=== PATIENT | female | born 1960 | race Two or more races ===

== ENCOUNTER 2023-02-16 14:16 | Emergency (ER) | payer MEDICARE, SELFPAY ==
--- NOTE | ~2023-02-16 | CT_ITS ---
EXAMINATION: CT ABDOMEN AND PELVIS WITH CONTRAST CLINICAL INFORMATION: Severe lower abdominal pain COMPARISON: None available. TECHNIQUE: Multidetector volumetric images were obtained from the superior aspect of the liver through the pubic symphysis following administration 85 mL of Omnipaque 350 intravenous contrast. Sagittal and coronal reformatted images were obtained on the technologist's workstation. Oral contrast: No This CT examination was performed using dose optimization techniques as appropriate, variously including the following: *Automated exposure control *Adjustment of mA and/or kV according to patient size (this includes techniques or standardized protocols for targeted exams where dose is matched to indication/reason for exam; i.e. extremities or head) *Use of iterative reconstruction technique DLP: 865 mGy-cm FINDINGS: LUNG BASES: Coronary artery calcification is present. ABDOMINAL AND PELVIC WALL: Tiny fat-containing umbilical hernia. LIVER AND BILIARY TREE: Hypoattenuating hepatic parenchyma compatible with hepatic steatosis. Liver is enlarged measuring 20.3 cm in span. GALLBLADDER: Cholelithiasis without evidence of acute cholecystitis. PANCREAS: Unremarkable. SPLEEN: Unremarkable. ADRENAL GLANDS: 2 homogeneous indeterminate left adrenal nodules measuring 1.6 cm and 1.3 cm, 25.4 and 61 Hounsfield units respectively. KIDNEYS AND URETERS: Moderate right hydroureteronephrosis with a delayed nephrogram and asymmetric perinephric fat stranding with a 7 mm obstructing stone in the ureterovesicular junction and a punctate additional stone in the distal ureter. A punctate nonobstructing right upper pole renal stone. GASTROINTESTINAL TRACT: Colonic diverticulosis without evidence of diverticulitis. Normal appendix. VASCULAR: Unremarkable. LYMPH NODES/PERITONEUM: Few prominent piyush hepatic nodes not pathologically enlarged measuring up to 1 cm short axis may be reactive given the background of underlying liver disease. Few subcentimeter short axis retroperitoneal nodes not pathologically enlarged. FREE FLUID: None. BLADDER: Unremarkable. PELVIC VISCERA: Myomatous uterus. OSSEOUS STRUCTURES: Unremarkable. CT/CT abdomen pelvis w IV con IMPRESSION: 1. Moderate right hydroureteronephrosis with a delayed nephrogram and asymmetric perinephric fat stranding with a 7 mm obstructing stone in the ureterovesicular junction and a punctate additional stone in the distal ureter. A punctate nonobstructing right upper pole renal stone is also present. 2. Two indeterminate left adrenal nodules measuring 1.6 cm and 1.3 cm. Assuming no history of primary malignancy findings are probable to reflect an adrenal adenoma. Recommend one-year follow-up adrenal washout CT, and if stable greater than or equal to 1 year no further imaging follow-up recommended. 3. Hepatomegaly and hepatic steatosis. 4. Cholelithiasis without evidence of acute cholecystitis. 5. Borderline enlarged piyush hepatic nodes, may be reactive given background of underlying liver disease. 6. Coronary artery calcification.
--- NOTE | 2023-02-16 15:22 | ED.ABDPAIN ---
HPI - Abdominal Pain General Chief Complaint: Abdominal Pain Stated Complaint: abd pain Time Seen by Provider: 02/16/23 15:36 Source: patient Mode of arrival: ambulatory Limitations: no limitations History of Present Illness HPI narrative: 62-year-old female with history of DM and obesity presents to the ER for evaluation of slowly worsening, now severe, lower abdominal pain that started about 9am and has gotten progressively worse. She states the pain comes in waves like contractions. It is located actross her entire lower abdomen and suprapubic area. She denies nausea, vomiting or diarrhea. She had a normal BM this morning. She reports sensation to urinate but is only urinating small amounts. No pain with urination and no blood in her urine. No fever or chills. No history of similar pains and no history of UTI. MD elicited complaint: abdominal pain Pertinent past history: none Onset (ago): hour(s) Pain Consistency: constant Location: RLQ, LLQ and suprapubic Severity: severe Pain scale (0-10): 10 Quality: stabbing Radiation: none Exacerbating factors: nothing Relieving factors: nothing Associated symptoms: other (difficulty urinating) Related Data Previous Rx's Medication Instructions Recorded hydromorphone 2 mg tablet 2 mg PO Q4-6H PRN pain #6 tabs 02/16/23 (Dilaudid) naproxen 375 mg tablet,delayed 375 mg PO BID PRN pain #30 tabs 02/16/23 release ondansetron 4 mg disintegrating 4 mg PO Q8-12H PRN nausea and 02/16/23 tablet vomiting #10 tabs prednisone 20 mg tablet 20 mg PO DAILY 3 days #3 tabs 02/16/23 tamsulosin 0.4 mg capsule (Flomax) 0.4 mg PO DAILY 2 weeks #14 caps 02/16/23 Allergies Allergy/AdvReac Type Severity Reaction Status Date / Time Penicillins [PENICILLINS] Allergy Mild UNKOWN Verified 02/16/23 15:22 Review of Systems Review of Systems Yes all other systems are reviewed and are negative [facility] Social History Social History Alcohol intake: never Smoked in Last 30 Days: No Use of substances other than those prescribed or required for medical reasons: No Advance Directives: No Advance Directives Information Provided: No Physical Exam ED Vital Signs: Vital Signs - 24 hr 02/16/23 15:23 02/16/23 18:29 02/16/23 19:23 Temperature 98.5 F 98.1 F 97.9 F Pulse Rate 135 H 68 60 Respiratory Rate 18 18 17 Blood Pressure 192/118 H 175/93 H 193/93 H Pulse Oximetry 99 98 99 Oxygen Delivery Method Room Air Room Air Room Air BMI result Body Mass Index 38.2 Appearance: Alert. Oriented X3. No acute distress. Head: normocephalic, atraumatic. Eyes: Pupils equal, round and reactive to light. ENT: Pharynx normal. No tonsillar swelling or exudate. Neck: Normal inspection. Neck supple. CVS: Normal heart rate and rhythm. Pulses normal. Respiratory: No respiratory distress. Breath sounds normal. Abdomen: Obese, Soft with mild diffuse tenderness of the lower abdomen and suprapubic area, no point tenderness, no rebound or guarding, normal active +BS x4 Skin: Skin warm and dry. Normal skin color. Normal skin turgor. No rashes. Extremities: No lower extremity edema. No joint swelling. Neuro/psych: Oriented X 3. No motor deficit. No sensory deficit. CN II-XII intact. Normal speech and cognition. Course Course Course Narrative: Patient complains of onset of low abdominal pain 5 hours ago which started mildly and has increased in severity and is now constant , no vomiting no dysuria no diarrhea, no fever no chest pain She is noted to have a pulse of 136, afebrile, blood pressure is 192/[address] scan ordered This is rapid medical exam in triage pending full evaluation, history and physical and review of labs and imaging by provider in the ER Reevaluation(s) Reevaluation #1: signed out to mike paige pa-c who will assume care Time: 16:38 Reevaluation #2: I was given sign out pending CT scan. CT scan revealing moderate right hydroureter nephrosis with delayed nephrogram and asymmetric perinephric fat stranding with 7 mm obstructing stone in the UVJ and punctate additional stone in the distal ureter. Time: 18:17 Reevaluation #3: Patient centered conversation discussed with patient and son, patient wishes to pass kidney stone at home if possible. I discussed this case with urologist, Dr. Juarez, who recommends admission but also agrees that if patient wishes to pass kidney stone at home we can send with medications to help facilitate this. Encouraged plenty of hydration. Dr. Bonilla recommends patient to be discharged on Zofran, Flomax, prednisone, naproxen, Dilaudid as needed and to follow up with Dr. Juarez. Patient remained comfortable, in no pain. Patient understands and agrees with plan. Given return precautions. Patient stable for discharge. Time: 19:46 Medical Decision Making Medical Decision Making [facility] Narrative: 62-year-old female with history of diabetes and obesity presents to the ER for evaluation slowly worsening lower abdominal pain that started this morning. No associated nausea, vomiting, diarrhea but she reports new difficulty urinating. She states the pain is a 10/10. She is tachycardic to 135 on arrival. She denies any palpitations. She is afebrile. Lab workup and CT scan have been ordered along with IV fluids and pain medication. Will reassess Differential Diagnosis Differential Diagnoses: The differential diagnosis associated with the presentation includes Acute diverticulitis, acute UTI, pyelonephritis, acute appendicitis Admission/Observation Consideration of admission/observation: Escalation of care including admission/observation considered Consult Healthcare Provider Management of the patient was discussed with: Risk Management Consultant Dr. Juarez Lab Data [facility] Lab Attestation statement: I reviewed the patient's lab results. 02/16/23 15:49 02/16/23 15:49 Labs: Lab Results 02/16/23 02/16/23 Range/Units 15:49 17:14 WBC 10.5 (4.8-10.8) X10*3/uL RBC 4.76 (4.20-5.50) X10*6/uL Hgb 13.1 (12.0-16.0) g/dl Hct 39.3 (37.0-47.0) % MCV 82.6 (80.0-98.0) fL MCH 27.5 (27.0-33.0) pg MCHC 33.3 (31.0-35.0) g/dl RDW 13.2 (11.0-16.0) % Plt Count 267 (160-400) X10*3/uL MPV 10.1 (9.4-12.3) fL Immature Gran % (Auto) 0.4 (0.0-0.4) % Neut % (Auto) 82.1 H (45-73) % Lymph % (Auto) 12.4 L (20-40) % [place] % (Auto) 4.5 (2-11) % Eos % (Auto) 0.4 (0-4) % Baso % (Auto) 0.2 (0-2) % Lymph # (Auto) 1.3 (1.2-4.9) X10*3/uL Mellette # (Auto) 0.5 (0.1-1.2) X10*3/uL Eos # (Auto) 0.0 (0.0-0.4) X10*3/uL Baso # (Auto) 0.0 (0.0-0.2) X10*3/uL Abs Immat Gran (auto) 0.04 H (0.00-0.03) X10*3/uL Absolute Neuts (auto) 8.7 H (2.0-8.3) x10*3/uL Absolute Nucleated RBC 0.000 (0.0-0.012) X10*3/uL Nucleated RBC % (auto) 0.0 (0.0-0.2) /100WBC Sodium 134 L (135-145) mmol/L Potassium 4.6 (3.3-5.1) mmol/L Chloride 105 (96-108) mmol/L Carbon Dioxide 19 L (22-29) mmol/L Anion Gap 15 (12-20) BUN 14 (9-16) mg/dL Creatinine 0.95 (0.5-1.4) mg/dL Estim Creat Clear Calc 61.6 Estimated GFR 59 Random Glucose 230 H (60-115) mg/dL Lactic Acid 2.0 (0.5-2.0) mmol/L Calcium 9.8 (8.4-10.2) mg/dL Total Bilirubin 0.5 (0.0-1.0) mg/dL Direct Bilirubin 0.1 (0.0-0.5) mg/dL AST 40 H (5-31) U/L ALT 32 H (0-31) U/L Alkaline Phosphatase 112 (39-117) U/L Total Protein 7.4 (6.5-8.0) g/dL Albumin 4.1 (3.5-5.0) g/dL Lipase 25 (8-78) U/L Urine Color Yellow Urine Appearance Clear Urine pH 6.5 (5.0-9.0) Ur Specific [place] 1.020 (1.005-1.025) Urine Protein Negative (Neg-Trace) mg/dL Urine Glucose (UA) 250 H (Negative) mg/dL Urine Ketones Negative (Negative) mg/dL Urine Blood Large (3+) H (Negative) Urine Nitrite Negative (Negative) Ur Leukocyte Esterase Small (1+) H (Negative) Urine RBC >20 H (0-2) /HPF Urine WBC 0-5 (0-5) /HPF Ur Squamous Epith Cells 0-2 (0-2) /HPF Urine Bacteria None Seen (None Seen) Hyaline Casts 0-2 (0-2) /LPF Independent Historian Clinical information obtained from an independent historian. History obtained from or confirmed by: Other (Adult child at bedside) Prescription Management I considered prescription management with: Pain Medication and Antibiotic Chronic Conditions Patient?s care impacted by: Diabetes Medications Administered Discontinued Medications Generic Name Dose Route Start Last Admin Trade Name Freq PRN Reason Stop Dose Admin Sodium Chloride 1,000 mls @ 999 mls/hr 02/16/23 15:45 02/16/23 16:55 Ns IVCONT 02/16/23 16:45 Infused .Q1H1M HUMBERTO Infusion Iohexol 100 ml 02/16/23 16:39 02/16/23 16:40 Iohexol 350 Mg/Ml 100 Ml Infus..Btl IV 02/16/23 16:40 85 ml ONCE ONE Administration Morphine Sulfate 4 mg 02/16/23 15:37 02/16/23 15:53 Morphine Sulfate 4 Mg/Ml Cartridge IVPUSH 02/16/23 15:38 4 mg ONCE ONE Administration Protocol Ondansetron HCl 4 mg 02/16/23 15:37 02/16/23 15:53 Ondansetron Hcl 4 Mg/2 Ml Vial IVPUSH 02/16/23 15:38 4 mg ONCE ONE Administration Critical Care Time Critical Care Time Critical Care Time: Yes Total Critical Care Time: 35 Attestation: I have personally provided critical care time exclusive of time spent on separately billable procedures. Time includes review of lab data, radiology results, discussion with consultants, and monitoring for potential decompensation. Intervention performed as documented. Discharge Plan Discharge Clinical Impression: Kidney calculus Patient Disposition: Still a Patient Instructions: Kidney Stones (ED) Additional Instructions: Your CT scan shows a 7 mm obstructing stone, as well as 2 smaller stones that are nonobstructing. Your CT scan was reviewed by urologist, Dr. Juarez. We are prescribing you multiple medications to help pass this kidney stone. Please take Flomax once a day for 2 weeks. Please take prednisone 20 mg for the next 3 days. Take Zofran as needed for nausea and vomiting. Take naproxen twice a day as needed. Take Dilaudid as needed for severe pain only. Please be aware that this can cause drowsiness, do not drink alcohol or drive while taking this medication. If any new or worsening symptoms occur including but not limited to worsening pain, inability to eat or drink secondary to nausea vomiting, chest pain or shortness of breath or any other concerning symptoms, please return for re-evaluation. Please follow-up with Dr. Juarez, call on Saturday to make an outpatient appointment. Prescriptions: New tamsulosin [Flomax] 0.4 mg capsule 0.4 mg PO DAILY 14 Days Qty: 14 0RF prednisone 20 mg tablet 20 mg PO DAILY 3 Days Qty: 3 0RF ondansetron 4 mg tablet,disintegrating 4 mg PO Q8-12H PRN (Reason: nausea and vomiting) Qty: 10 0RF naproxen 375 mg tablet,delayed release (DR/EC) 375 mg PO BID PRN (Reason: pain) Qty: 30 0RF hydromorphone [Dilaudid] 2 mg tablet 2 mg PO Q4-6H PRN (Reason: pain) Qty: 6 0RF Rx Instructions: Partial Fill upon patient request. Referrals: [facility] – [place] [facility] [Provider Group]
[2023-02-16 15:23] VITALS: BP 192/118; PULSE 135; RESP 18; TEMP 36.9; O2SAT 99; BMI 38.2
[2023-02-16] MEDS: Morphine Sulfate 4 MG/ML CARTRIDGE IVPUSH (15:53)
[2023-02-16] MEDS: 0.9 % Sodium Chloride 1,000 ML 999 ML IVCONT (15:53)
[2023-02-16] MEDS: ondansetron HCL 4 MG/2 ML VIAL IVPUSH (15:53)
[2023-02-16 15:57] LABS: MANUAL DIFF FLAG NO
[2023-02-16 15:58] LABS: Basophils Percent Auto 0.2 % (0-2); Eosinophils Percent Auto 0.4 % (0-4); Hematocrit 39.3 % (37.0-47.0); Hemoglobin 13.1 g/dl (12.0-16.0); Imm Gran Abs Auto 0.04 X10*3/uL (0.00-0.03); Imm Gran Pct Auto 0.4 % (0.0-0.4); Lymphocytes Absolute Auto 1.3 X10*3/uL (1.2-4.9); Lymphocytes Percent Auto 12.4 % (20-40); Mean Corpuscular HGB Conc 33.3 g/dl (31.0-35.0); Mean Corpuscular Hemoglobin 27.5 pg (27.0-33.0); Mean Corpuscular Volume 82.6 fL (80.0-98.0); Mean Platelet Volume 10.1 fL (9.4-12.3); Monocytes Absolute Auto 0.5 X10*3/uL (0.1-1.2); Monocytes Percent Auto 4.5 % (2-11); Neutrophils Absolute Auto 8.7 x10*3/uL (2.0-8.3); Neutrophils Percent Auto 82.1 % (45-73); Platelet Count 267 X10*3/uL (160-400); Red Blood Count 4.76 X10*6/uL (4.20-5.50); Red Cell Distribution Width 13.2 % (11.0-16.0); White Blood Count 10.5 X10*3/uL (4.8-10.8)
[2023-02-16 16:17] LABS: Alanine Aminotransferase 32 U/L (0-31); Albumin Level 4.1 g/dL (3.5-5.0); Alkaline Phosphatase 112 U/L (39-117); Anion Gap 15 (12-20); Aspartate Amino Transferase 40 U/L (5-31); Bilirubin Direct 0.1 mg/dL (0.0-0.5); Bilirubin Total 0.5 mg/dL (0.0-1.0); Blood Urea Nitrogen 14 mg/dL (9-16); Calcium 9.8 mg/dL (8.4-10.2); Carbon Dioxide 19 mmol/L (22-29); Chloride 105 mmol/L (96-108); Creatinine Clr Calc Pharmacy 61.6; Estimated Glomerular Filt Rate 59; Glucose Random 230 mg/dL (60-115); Lipase 25 U/L (8-78); Potassium 4.6 mmol/L (3.3-5.1); Sodium 134 mmol/L (135-145); Total Protein 7.4 g/dL (6.5-8.0)
[2023-02-16] MEDS: iohexoL 350 MG/ML 100 ML INFUS..BTL IV (16:40)
[2023-02-16 17:20] LABS: Appearance Urine Clear; Color Urine Yellow; Glucose Urine UA 250 mg/dL (Negative); Leukocyte Esterase Urine Small (1+) (Negative); Nitrite Urine Negative (Negative); PH 6.5 (5.0-9.0); UMIC TRIGGER UACC YES; Urine Blood Large (3+) (Negative); Urine Ketones Negative (Negative); Urine Protein Negative (Neg-Trace)
[2023-02-16 17:43] LABS: Bacteria Urine None Seen (None Seen); Hyaline Casts Urine 0-2 /LPF (0-2); RBC Urine >20 /HPF (0-2); Squamous Epithelial Cell Urine 0-2 /HPF (0-2); UACC Culture Trigger YES; WBC Urine 0-5 /HPF (0-5)
[2023-02-16 18:29] VITALS: BP 175/93; PULSE 68; RESP 18; TEMP 36.7; O2SAT 98
[2023-02-16 19:23] VITALS: BP 193/93; PULSE 60; RESP 17; TEMP 36.6; O2SAT 99
== END 2023-02-16 20:11 | disposition home or self-care (01) ==
PROVIDERS: Physician Assistant; Physician Assistant Medical; Emergency Provider Emergency Medicine; PCP Internal Medicine
DX: N13.2 Hydronephrosis with renal and ureteral calculous obstruction (principal); E11.9 Type 2 diabetes mellitus without complications
CPT/HCPCS: 36415; 74177; 80048; 80076; 81001; 83605; 83690; 85025; 87040; 87086; 96361; 96374; 96375; 99284; J2270; J2405; Q9967